=== PATIENT | male | born 1980 | race African-American/Black ===

== ENCOUNTER 2020-07-02 16:07 | Emergency (ER) | payer MEDICAID, SELFPAY ==
[~2020-07-02] VITALS: Ht 180.3 cm; Wt 89.3 kg
[2020-07-02 16:37] VITALS: BP 145/92
== END 2020-07-02 17:28 | disposition left against medical advice (07) ==
LOC: ED 17:19
DX: R09.89 Other specified symptoms and signs involving the circulatory and respiratory systems (principal); Z20.822 Contact with and (suspected) exposure to COVID-19
CPT/HCPCS: 87635; 99283

== ENCOUNTER 2020-09-19 09:36 | Emergency (ER) | payer MEDICAID ==
[~2020-09-19] VITALS: Ht 180.3 cm; Wt 83.0 kg
--- NOTE | 2020-09-19 10:15 | NUR ---
pt not in room. as
== END 2020-09-19 11:07 | disposition left against medical advice (07) ==
LOC: ED 10:00
DX: Z53.21 Procedure and treatment not carried out due to patient leaving prior to being seen by health care provider (principal)

== ENCOUNTER 2020-09-27 22:38 | Emergency (ER) | payer MEDICAID ==
[~2020-09-27] VITALS: Ht 180.3 cm; Wt 75.0 kg
[2020-09-27 22:39] VITALS: BP 165/84
--- NOTE | 2020-09-27 23:33 | NUR ---
No answer in lobby x1.
--- NOTE | 2020-09-27 23:45 | NUR ---
NA x2
--- NOTE | 2020-09-28 00:05 | NUR ---
NA in lobby
== END 2020-09-28 00:07 | disposition left against medical advice (07) ==
LOC: ED 23:32
DX: F22 Delusional disorders (principal); Z53.21 Procedure and treatment not carried out due to patient leaving prior to being seen by health care provider